=== PATIENT | female | born 1955 | race Two or more races ===

== ENCOUNTER 2021-04-03 09:40 | Outpatient (CLI) | payer MEDICARE, OTHER, SELFPAY ==
--- NOTE | 2021-04-03 10:15 | USCV_ITS ---
Veronica Hinton Age: 66 Gender: F : 1955 Exam Date: 04/03/2021 10:16 Ordering Phys: Flor Mckoy NP Technologist: Breanna Naranjo Exam Location: [facility] [place] Indication: palpitations, SOB, Fatigue BP: 130 / 80 HR: 52 Rhythm: Sinus Technical Quality: Adequate MEASUREMENTS (Male / Female) Normal Values 2D ECHO LV Diastolic Diameter PLAX 4.1 cm 4.2 - 5.9 / 3.9 - 5.3 cm LV Systolic Diameter PLAX 2.1 cm IVS Diastolic Thickness 1.7 cm 0.6 - 1.0 / 0.6 - 0.9 cm IVS Systolic Thickness 2.4 cm LVPW Diastolic Thickness 1.1 cm 0.6 - 1.0 / 0.6 - 0.9 cm LVPW Systolic Thickness 1.9 cm LV Ejection Fraction 2D Teich 80.4 % LV Ejection Fraction MOD 2C 60.9 % LV Ejection Fraction 2C AL 62.8 % LA Diameter 2.6 cm LA Width 3.1 cm LA Height 5.7 cm RA Width 3.0 cm RA Height 3.9 cm Aorta at Sinotubular Diameter 3.3 cm DOPPLER AV Peak Velocity 110.0 cm/s LVOT Peak Velocity 101.0 cm/s MV Peak Velocity 75.0 cm/s MV Area PHT 4.0 cm squared Mitral E to A Ratio 0.8 MV E' Velocity 33.5 cm/s Mitral E to MV E' Ratio 10.4 Mitral E to LV E' Lateral Ratio 10.0 Mitral E to LV E' Septal Ratio 10.9 TR Peak Velocity 243.0 cm/s TR Peak Gradient 23.6 mmHg Right Atrial Pressure 3.0 mmHg Pulmonary Artery Systolic Pressu 26.6 mmHg PV Peak Velocity 90.0 cm/s RV Acceleration Time 0.1 s RV Ejection Time 0.3 s RV AcT/ET 0.4 FINDINGS Left Ventricle Normal left ventricular size and ejection fraction , EF 60 %. Mild left ventricular hypertrophy. Mild hypokinesia of the LV apex.Grade I/IV diastolic dysfunction (abnormal relaxation filling pattern), normal to mildly elevated filling pressures. Right Ventricle The right ventricle is normal in size and function. Right Atrium The right atrium is normal in size. Left Atrium The left atrium is normal in size. Mitral Valve Trace mitral valve regurgitation. Aortic Valve Thickened aortic valve. Tricuspid Valve Apwj-gr-gnqglags tricuspid valve regurgitation. Pulmonic Valve Pulmonic valve not well visualized. Pericardium Normal pericardium without effusion. Aorta Normal ascending aorta dimension. CONCLUSIONS Normal left ventricular size and ejection fraction , EF 60 %. Mild left ventricular hypertrophy. Mild hypokinesia of the LV apex.Grade I/IV diastolic dysfunction (abnormal relaxation filling pattern), normal to mildly elevated filling pressures. Thickened aortic valve. Trace mitral valve regurgitation. Upgq-cf-rbwqumdl tricuspid valve regurgitation. Estimated pulmonary artery peak systolic pressure of 27 mmHg There is no pericardial effusion. There are no intracardiac masses. No previous study is available for comparison. Dr Sage Armando MD FACC (Electronically Signed) Final Date: 03 April 2021 18:20 S
== END 2021-04-03 09:41 | disposition home or self-care (01) ==
PROVIDERS: PCP Nurse Practitioner Family; Visit Provider Nurse Practitioner Family
DX: R00.2 Palpitations (principal); R06.02 Shortness of breath; R53.83 Other fatigue; I08.3 Combined rheumatic disorders of mitral, aortic and tricuspid valves
CPT/HCPCS: 93306

== ENCOUNTER → 2021-05-19 11:23 | Outpatient (BNVA) | payer MEDICARE, OTHER, SELFPAY | PROVIDERS: PCP Nurse Practitioner Family; Visit Provider Internal Medicine Cardiovascular Disease | DX: R06.02 Shortness of breath (principal); I07.1 Rheumatic tricuspid insufficiency | CPT/HCPCS: 80048 ==

== ENCOUNTER → 2021-05-28 15:20 | Outpatient (BNVA) | payer MEDICARE, OTHER, SELFPAY | PROVIDERS: PCP Nurse Practitioner Family; Visit Provider Internal Medicine Cardiovascular Disease | DX: I07.1 Rheumatic tricuspid insufficiency (principal); R00.1 Bradycardia, unspecified; I10 Essential (primary) hypertension | CPT/HCPCS: 80048 ==

== ENCOUNTER 2021-09-08 20:00 | Outpatient (CLI) | payer MEDICARE, OTHER, SELFPAY | END 2021-09-08 20:01 | disposition home or self-care (01) | LOC: SLEEP 09-09 08:35 | PROVIDERS: PCP Nurse Practitioner Family; Visit Provider Internal Medicine Cardiovascular Disease | DX: R53.83 Other fatigue (principal); R06.83 Snoring; G47.33 Obstructive sleep apnea (adult) (pediatric) | CPT/HCPCS: 95810 ==

== ENCOUNTER 2021-11-03 20:00 | Outpatient (CLI) | payer MEDICARE, OTHER, SELFPAY | END 2021-11-03 20:01 | disposition home or self-care (01) | LOC: SLEEP 11-04 07:41 | PROVIDERS: PCP Nurse Practitioner Family; Visit Provider Nurse Practitioner Family | DX: G47.33 Obstructive sleep apnea (adult) (pediatric) (principal) | CPT/HCPCS: 95811 ==

== ENCOUNTER → 2022-01-13 12:39 | Outpatient (BNVA) | payer MEDICARE, OTHER, SELFPAY | PROVIDERS: PCP Nurse Practitioner Family; Visit Provider Internal Medicine Cardiovascular Disease | DX: I11.9 Hypertensive heart disease without heart failure (principal); G47.30 Sleep apnea, unspecified; I07.1 Rheumatic tricuspid insufficiency; R00.1 Bradycardia, unspecified; R60.9 Edema, unspecified | CPT/HCPCS: 99213 ==

== ENCOUNTER 2022-04-27 12:50 | Emergency (ER) | payer MEDICARE, OTHER, SELFPAY ==
[2022-04-27 13:15] VITALS: BP 128/72; PULSE 71; RESP 18; TEMP 36.8; O2SAT 98; BMI 39.2
--- NOTE | 2022-04-27 13:23 | XRR_ITS ---
PROCEDURE INFORMATION: Exam: XR Right Knee Exam date and time: 04/27/2022 1:37 PM Age: 67 years old Clinical indication: Pain; Knee; Right; Additional info: Right knee pain after buckling knee injury TECHNIQUE: Imaging protocol: Radiologic exam of the Right knee. Views: 3 views. COMPARISON: No relevant prior studies available. FINDINGS: Bones/joints: Normal. Soft tissues: Normal. XR/XR knee RT 3V* [id number] IMPRESSION: No acute findings.
--- NOTE | 2022-04-27 13:40 | ED_ITS ---
HPI - Extremity Problem General: Chief complaint: Extremity Injury, Lower Stated complaint: Right knee pain, weakness Time Seen by Provider: 04/27/22 13:23 History of Present Illness: Patient is a 67-year-old female comes to the ED with right knee pain. Patient says yesterday she was walking unbuckled her right knee. When injury occurred she had sharp pain in her knee. Since injury she has a lot of pain with any weightbearing on right leg her knee feels unstable and she says she bello it when trying to ambulate on it. At rest pain is a 2 out of 10 but any flexion or extension of knee or weightbearing causes worsening pain. Associated symptoms: Deny chest pain, fever(s) or rash Review of Systems Const: Denies: fever(s), chills or fatigue Eyes: Denies: change in vision or eye discomfort ENMT: Denies: throat pain, odynophagia, nasal discharge or nasal congestion Card: Denies: chest pain, palpitations, edema, swelling of feet/ankles, dyspnea on exertion or orthopnea Resp: Denies: dyspnea, productive cough or non-productive cough GI: Denies: abdominal pain, nausea, vomiting, diarrhea, constipation or hematochezia : Denies: flank pain, dysuria or hematuria Musc: Reports: extremity pain (Right knee) and limited range of motion (Right knee); Denies: neck pain, back pain or extremity swelling Skin/Breast: Denies: rash or new lesions Neuro: Denies: headache(s), numbness in extremities or weakness in extremities [facility] ED PFSH: Medical History (Updated 04/27/22 @ 14:22 by SILVIA Little) Bradycardia Diastolic dysfunction Dyslipidemia Edema HTN (hypertension) Shortness of breath Tricuspid valve regurgitation Surgical History H/O section (~1984) S/P cholecystectomy (~1991) S/P hemorrhoidectomy (~2004) S/P hysterectomy (~1999) S/P lumpectomy of breast (~2004) S/P trigger finger release (~2014) Family History Mother Atrial fibrillation CHF (congestive heart failure) Father Diabetes Social History Smoking and tobacco status: never smoked Physical Exam Const: COMMON NORMALS: patient oriented x3 HENMT: COMMON NORMALS: normocephalic HEAD & SCALP: normocephalic MOUTH: Normal oral and palatal mucosa present THROAT: posterior oropharynx normal and uvula midline Neck/C-Spine: COMMON NORMALS: supple GENERAL: Yes normal visual inspection Resp: COMMON NORMALS: normal respiratory effort, No retractions, No use of accessory muscles and clear to auscultation bilaterally AUSCULTATION: clear to auscultation bilaterally Cardio: COMMON NORMALS: regular rate, regular rhythm, S1 normal heart sound present, S2 normal heart sound present, No gallops present (Cardio), No clicks present (Cardio), No murmurs present (Cardio) and Peripheral pulses 2+ throughout RATE: regular rate RHYTHM: regular rhythm HEART SOUNDS: S1 normal heart sound present and S2 normal heart sound present PERIPHERAL PULSES: Peripheral pulses 2+ throughout GI: COMMON NORMALS: Normal to inspection, nondistended, normoactive bowel sounds present, Soft to palpation, non-tender and no masses PALPATION: Yes Soft to palpation : COMMON NORMALS: Yes no CVA tenderness BLADDER/KIDNEY EXAM: Yes no CVA tenderness Back/Pelvis: COMMON NORMALS: no CVA tenderness Extremity: NARRATIVE EXTREMITY EXAM: Right knee?no visible swelling, ecchymosis seen. Tenderness of posterior knee. Pain with range of motion. Neurovascular intact. Neuro: COMMON NORMALS: patient oriented x3 GAIT: Yes Normal gait present Skin: GENERAL SKIN EXAM: dry skin Course Vital Signs: Vital signs: Vital Signs Temperature 98.3 F 04/27/22 13:15 Pulse Rate 71 04/27/22 13:15 Respiratory Rate 18 04/27/22 13:15 Blood Pressure 128/72 04/27/22 13:15 Pulse Oximetry 98 04/27/22 13:15 Oxygen Delivery Me thod 04/27/22 13:15 MDM - Extremity (Nontraumatic) Medical Decision Making Patient is a 67-year-old female comes to the ED with right knee pain. Patient says yesterday she was walking unbuckled her right knee. When injury occurred she had sharp pain in her knee. Since injury she has a lot of pain with any davonte ghtbearing on right leg her knee feels unstable and she says she bello it when trying to ambulate on it. Right knee?no visible swelling, ecchymosis seen. Tenderness of posterior knee. Pain with range of motion. Neurovascular intact. X-ray of the right knee showed no acute findings. Patient was put in a knee immobilizer and discharged home. I placed an order with case management for patient be referred to Ortho for further evaluation of knee pain and injury. Return ED precautions given. Patient understood and agreed with plan. Lab Data Radiology Impressions Knee X-Ray 04/27/22 13:23 IMPRESSION: No acute findings. Discharge Plan Discharge Patient Disposition: Home Clinical Impression: Acute knee pain Qualifiers: Laterality: right Qualified Code(s): M25.561 - Pain in right knee Condition: Stable Prescriptions: No Action citalopram 20 mg tablet 20 mg PO DAILY omeprazole 20 mg capsule,delayed release(DR/EC) 20 mg PO DAILY trazodone 100 mg tablet 100 mg PO DAILY cetirizine [Zyrtec] 10 mg tablet 10 mg PO DAILY PRN amlodipine 10 mg tablet 10 mg PO DAILY Qty: 90 3RF atorvastatin 40 mg tablet 40 mg PO DAILY Qty: 90 3RF carvedilol 12.5 mg tablet 12.5 mg PO BID Qty: 180 3RF Rx Instructions: must administer with a meal/food spironolactone [Aldactone] 25 mg tablet 12.5 mg PO DAILY Qty: 45 3RF Discharge Orders: Discharge ED (Routine); Ordered 04/27/22 Ordered By: Natalio Hernandez Referrals: Flor Mckoy NP [Primary Care Provider] - Discharge Diet: Regular Discharge Activity: Increase activity as tolerated Patient Instructions: Knee Pain (ED) Activity Restrictions/Additional Instructions: Follow-up with medical provider as directed. Case management should be contacting you in the next several days set up an appointment with Ortho for follow-up on knee pain. Wear knee immobilizer and use walker to help with ambulation. Continue taking all home medications as previously prescribed. return to the ER or your medical provider if condition worsens. Please read and understand discharge instructions. Thank you for choosing [facility] for your healthcare needs today. Please realize this is an emergency room and that we are providing you with a medical screening exam and this may not be complete and all inclusive of all the testing and or work up that you may need to determine your ailment or severity of your illness. It is very important that you follow up as instructed or that you return to the Emergency Department should you have concerns or if your condition changes or worsens in any way. Coding Level of Care Code ED E Learning Coordinator for Marissa Thomas Exam Comprehensive
--- NOTE | 2022-04-27 15:44 | DCPLANNER ---
Addendum entered by Miriam Barnhart 05/05/22 13:38: Patient had a follow up appointment scheduled for 04.29.22 with James at ortho - patient did attend appointment. Original Note: food service manager had message to schedule a follow up appointment for patient with ortho. food service manager sent patients information to the front office staff at ortho. Patients information will be printed and reviewed. Clinic will call patient with appointment information.
== END 2022-04-27 14:42 | disposition home or self-care (01) ==
PROVIDERS: Emergency Provider Physician Assistant; PCP Nurse Practitioner Family
DX: M25.561 Pain in right knee (principal); E78.5 Hyperlipidemia, unspecified; I10 Essential (primary) hypertension
CPT/HCPCS: 29530; 73562; 99283

== ENCOUNTER 2022-04-29 11:45 | Outpatient (CLI) | payer MEDICARE, OTHER, SELFPAY | END 2022-04-29 11:46 | disposition home or self-care (01) | LOC: SPT 11:45 | PROVIDERS: PCP Nurse Practitioner Family; Visit Provider Nurse Practitioner Family | DX: Z46.89 Encounter for fitting and adjustment of other specified devices (principal); M25.561 Pain in right knee; M17.11 Unilateral primary osteoarthritis, right knee | CPT/HCPCS: 97760; 99213; 99214; L1812 ==